=== PATIENT | female | born 1980 | race African-American/Black ===

== ENCOUNTER 2021-04-20 09:55 | Inpatient (IN) | payer BC ==
[~2021-04-20] VITALS: Ht 144.8 cm; Wt 52.2 kg
[2021-04-20] MEDS ORDERED: fentaNYL PF VIAL 100 MCG/2 ML VIAL IVP ONE ×2 (10:45→14:30)
[2021-04-20] MEDS ORDERED: IV NORMAL SALINE 1000ML BAG 1,000 ML IV SCH (10:45)
[2021-04-20] MEDS ORDERED: ONDANSETRON PF 4 MG/2 ML VIAL. IVP ONE (10:45)
--- NOTE | 2021-04-20 10:50 | PHYS DOC ---
General Adult EDM: Chief Complaint: ABDOMINAL PAIN HPI: HPI: Patient is a 41 year old female who presents with nausea, vomiting, generalized abdominal pain that is aching and sharp since last night. She states she does have some shortness of breath. She states she took a laxative thinking maybe she had constipation and she just had some diarrhea. She does smoke marijuana and she states she drinks twice a week hard liquor but does not know the amount she actually drinks. Rates her pain a 10 out of 10. Denies any surgeries. Denies fever, chest pain, blood in her vomit or stool, numbness or tingling, focal weakness, headache, dizziness, syncope, trauma. Review of Systems: Review of Systems: Constitutional: Denies fever or chills. [] Eyes: Denies change in visual acuity. [] HENT: Denies nasal congestion or sore throat. [] Respiratory: Denies cough or +shortness of breath. [] Cardiovascular: Denies chest pain or edema. [] GI: +abdominal pain, +nausea, +vomiting, denies bloody stools or +diarrhea after laxative use. [] : Denies dysuria. [] Musculoskeletal: Denies back pain or joint pain. [] Integument: Denies rash. [] Neurologic: Denies headache, focal weakness or sensory changes. [] Endocrine: Denies polyuria or polydipsia. [] Lymphatic: Denies swollen glands. [] Psychiatric: Denies depression or anxiety. [] Heart Score: C/O Chest Pain: No Risk Factors: Risk Factors: DM, Current or recent (<one month) smoker, HTN, HLP, family h istory of CAD, obesity. Risk Scores: Score 0 - 3: 2.5% MACE over next 6 weeks - Discharge Home Score 4 - 6: 20.3% MACE over next 6 weeks - Admit for Clinical Observation Score 7 - 10: 72.7% MACE over next 6 weeks - Early Invasive Strategies Current Medications: Current Medications Medications (Trade) Dose Ordered Sig/Yunior Start Time Stop Time Status Last Admin Dose Admin Fentanyl Citrate (Fentanyl 2ml Vial) 50 mcg 1X ONCE 04/20/21 10:45 04/20/21 10:46 UNV Ondansetron HCl (Zofran) 4 mg 1X ONCE 04/20/21 10:45 04/20/21 10:46 UNV Sodium Chloride 1,000 ml @ 1,000 mls/hr Q1H 04/20/21 10:45 04/20/21 11:44 UNV Physical Exam: PE: Constitutional: Well developed, well nourished, no acute distress, non-toxic appearance. [] HENT: Normocephalic, atraumatic, bilateral external ears normal, oropharynx moist, no oral exudates, nose normal. [] Eyes: PERRLA, EOMI, conjunctiva normal, no discharge. [] Neck: Normal range of motion, no tenderness, supple, no stridor. [] Cardiovascular:Heart rate regular rhythm, no murmur [] Lungs & Thorax: Bilateral breath sounds clear to auscultation [] Abdomen: Bowel sounds normal, soft, generalized tenderness, no masses, no pulsatile masses. [] Skin: Warm, dry, no erythema, no rash. [] Back: No tenderness, no CVA tenderness. [] Extremities: No tenderness, no cyanosis, no clubbing, ROM intact, no edema. [] Neurologic: Alert and oriented X 3, normal motor function, normal sensory function, no focal deficits noted. [] Psychologic: Affect normal, judgement normal, mood normal. [] EKG: EK and read by Dr Blackman as Sinus Rhythm and no STEMI Radiology/Procedures: Radiology/Procedures: [] Impression: [facility] [address] [place], [place] [id number] IMAGING REPORT Signed PATIENT: REZA OH MACCOUNT: [id number] : 1980 LOCATION: ER AGE: 41 SEX: F EXAM STATUS: REG ER ORD. PHYSICIAN: MARGARET ORDAZ APRN REASON: SOA PROCEDURE: PORTABLE CHEST 1V XR CHEST 1V CLINICAL INDICATIONS: Shortness of air. Comparison: None available. Findings: No acute lung infiltrate or pleural effusion or pulmonary edema or lung mass or pneumothorax is seen. The heart size, pulmonary vasculature, mediastinum and both verenice are unremarkable. IMPRESSION: No acute radiographic abnormality is seen. Electronically signed by: Carrie Chauhan MD (04/20/2021 11:11 AM) [id number] DICTATED and SIGNED BY: CARRIE CHAUHAN MD DATE: 04/20/21 [id number] [facility] [address] [place] [address] IMAGING REPORT Signed PATIENT: REZA OH MACCOUNT: [id number] : 1980 LOCATION: ER AGE: 41 SEX: F EXAM STATUS: REG ER ORD. PHYSICIAN: MARGARET ORDAZ APRN REASON: GENERALISED PAIN AND TENDERNESS PROCEDURE: CT ABD PELV W/ IV CONTRST ONLY CT STUDY OF THE ABDOMEN AND PELVIS WITH CONTRAST Clinical indications: Generalized abdominal pain and tenderness. TECHNIQUE: After IV infusion of 75 cc Omnipaque 300, helical CT scanning of the abdomen and pelvis was performed. GI contrast was not administered. This may decrease the sensitivity to detect GI tract pathology. PQRS COMPLIANCE STATEMENT One or more of the following individualized dose reduction techniques were utilized for this study: 1. Automated exposure control 2. Adjustment of the mA and/or kV according to patient size 3. Use of iterative reconstruction technique COMPARISON: No previous CT available. FINDINGS: Hepatic cysts are seen. The spleen is not enlarged. Pancreas is normal. Biliary sludge is seen within the gallbladder. No radiopaque gallstone or gallbladder wall thickening is evident. No extrahepatic biliary ductal dilatation is seen. No adrenal mass is evident. Both kidneys are normal without hydronephrosis or hydroureter is seen. Urinary bladder wall is smooth. 2 uterine fibroids are seen. The first fibroid is seen within the anterior superior aspect of the uterus and measures 4.5 cm. The second fibroid is seen posteriorly within the mid body of uterus measuring 3.4 cm. Curvilinear cystic lesion is seen within the right lower quadrant seen best on series 4 image 15 measuring 5 cm in size. This could represent an abnormal appendix or hydrosalpinx. On series 2 and image 59, there is a solid appearing tubular structure measuring 11 mm in caliber. This is seen on coronal series 4 image 22. This could represent thickened appendix or thickened fallopian tube or thickened small bowel loop extending into the right adnexa. On series 2 and image 47, there is segmental small bowel with enhancing thickened wall and filled with fluid. This may represent segmental enteritis. The terminal ileum is not well visualized in this study and is difficult to separate from the ascending colon and adjacent small bowel loops. Wall thickening of the terminal ileum is possible. Therefore, Crohn's disease is a possibility if there is a history of such. Just inferior to this segment of small bowel, a fluid collection with enhancing wall is seen measuring 5.3 cm seen on series 4 and coronal image 12 and axial series 2 image 51. This could represent ovarian cystic lesion or tubo-ovarian abscess with hydrosalpinx or ectopic or endometriosis or peritoneal cavity abscess. There is a small amount of complex fluid within the cul-de-sac. There is mesenteric edema. There are air-filled dilated loops of small bowel anteriorly with a step ladder configuration. This is seen best on coronal image 4 and image 9. Developing small bowel obstruction is possible. No free air is seen. There is segmental wall thickening of the colon especially the ascending colon and descending colon and proximal sigmoid colon with enhancement of the wall. There is pericolonic inflammation around the ascending colon. These findings may reflect colitis. No lung base consolidation is evident. Levoscoliosis is seen. No lytic process is evident. IMPRESSION: Multiple abnormalities of the abdomen and pelvis. See discussion above. Correlation with test is recommended to exclude an ectopic . Correlation with clinical and surgical history is needed as well; i.e history of endometriosis or Crohn's disease etc. Biliary sludge within the gallbladder. Electronically signed by: Carrie Chauhan MD (04/20/2021 1:23 PM) [id number] DICTATED and SIGNED BY: CARRIE CHAUHAN MD DATE: 04/20/21 [id number] [facility] [address] [place] [address] IMAGING REPORT Signed PATIENT: REZA OH MACCOUNT: [id number] : 1980 LOCATION: ER AGE: 41 SEX: F EXAM STATUS: REG ER ORD. PHYSICIAN: MARGARET ORDAZ APRN REASON: ABNORMAL CT ABD PELVIS, PELVIC PAIN PROCEDURE: PELVIS COMPLETE EXAM: ULTRASOUND PELVIS INDICATION: Reason: ABNORMAL CT ABD PELVIS, PELVIC PAIN. COMPARISON: CT study performed today. TECHNIQUE: Transabdominal sonography was performed. FINDINGS: Uterus anteverted in position. The longitudinal and AP and transverse dimensions of the uterus are 10.0 cm and 5.3 cm and 5.8 cm respectively. There is an anterior upper body uterine fibroid measuring 3.6 cm in size. There is a posterior mid body uterine fibroid measuring 3.1 cm in size. The endometrial canal measures 3 mm in thickness which is normal. There is a complex fluid colle ction within the cul-de-sac posterior to the cervix and lower uterine body measuring 4.9 cm and 2.7 cm and 7.3 cm in size. Neither ovary is visualized. There is a complex cystic and solid mass lesion which extends from the left adnexa to the right adnexa with internal vascularity. It measures at least 9 cm in size. IMPRESSION: Complex cystic solid mass lesion extending from the left adnexa to the right adnexa measuring at least 9 cm in size. Neither ovary is visualized. Complex fluid within the cul-de-sac. 2 uterine fibroids. Electronically signed by: Carrie Chauhan MD (04/20/2021 3:44 PM) [id number] DICTATED and SIGNED BY: CARRIE CHAUHAN MD DATE: 04/20/21 [id number] Course & Med Decision Making: Course & Med Decision Making Pertinent Labs and Imaging studies reviewed. (See chart for details) See HPI. Alert and oriented x4. Ambulatory with a steady gait but is not standing straight up. She is guarding her abdomen. Abdomen is soft but tender throughout. Speaks in full clear sentences. Skin pink warm and dry. Mucous membranes are moist. Denies any urinary symptoms. No CVA tenderness. Patient has intractable abdominal pain. She does have trichomonas in her urine. Treat her with Rocephin IV and Flagyl p.o. Toradol did not help her pain. Patient refused the fentanyl the first time I had ordered it. I have now ordered her fentanyl. She is also needing nicotine patch. The CT came back showing uterine fibroids, possible tubal abscess, inflammatory bowel disease, appendicitis. Due to her having trichomonas in her urine I think the tubal abscess is more likely. I have started doxycycline IV. Patient agrees to be admitted. Admitted to Dr. Dunn. [] Padmini Disclaimer: Padmini Disclaimer: This electronic medical record was generated, in whole or in part, using a voice recognition dictation system. Departure Departure Impression: Primary Impression: Intractable abdominal pain Additional Impression: Trichomoniasis of bladder Disposition: ADMITTED INPATIENT Admitting Physician: MIRNA Condition: STABLE MARGARET ORDAZ THREADER OPERATOR Apr 20, 2021 10:50
[2021-04-20 11:27] LABS: BASO % 1 % (0-3); EOS % 0 % (0-3); HEMATOCRIT 35.1 % (36.0-47.0); HEMOGLOBIN 11.2 g/dL (12.0-15.5); LYMPH # 2.1 x10^3/uL (1.0-4.8); LYMPH % 28 % (24-48); MEAN CORPUSCULAR HEMOGLOBIN 24 pg (25-35); MEAN CORPUSCULAR HGB CONC 32 g/dL (31-37); MEAN CORPUSCULAR VOLUME 75 fL (79-100); MONO # 0.2 x10^3/uL (0.0-1.1); MONO % 3 % (0-9); NEUT # 5.1 x10^3/uL (1.8-7.7); NEUT % 68 % (31-73); PLATELET COUNT 264 x10^3/uL (140-400); RED BLOOD COUNT 4.68 x10^6/uL (3.50-5.40); RED CELL DISTRIBUTION WIDTH 16.3 % (11.5-14.5); WHITE BLOOD COUNT 7.5 x10^3/uL (4.0-11.0)
[2021-04-20 11:35] LABS: CALCIUM 8.6 mg/dL (8.5-10.1); CREATININE 0.7 mg/dL (0.6-1.0); GFR 91.8; POTASSIUM 3.5 mmol/L (3.5-5.1)
[2021-04-20 11:42] LABS: ALBUMIN 3.1 g/dL (3.4-5.0); ALBUMIN/GLOBULIN RATIO 0.9 (1.0-1.7); TOTAL BILIRUBIN 0.8 mg/dL (0.2-1.0); TOTAL PROTEIN 6.4 g/dL (6.4-8.2)
[2021-04-20 11:56] LABS: BILIRUBIN,URINE NEGATIVE (NEG); CLARITY,URINE CLEAR; COLOR,URINE YELLOW; NITRITE,URINE NEGATIVE (NEG); PROTEIN,URINE 30 mg/dL (NEG-TRACE); UROBILINOGEN,URINE 0.2 mg/dL (0.2 mg/dL)
[2021-04-20 12:04] LABS: BARBITURATES NEG (NEG); BENZODIAZEPINES NEG (NEG); CANNABINOIDS POS (NEG); COCAINE NEG (NEG); METHADONE NEG (NEG); OPIATES NEG (NEG); PHENCYCLIDINE NEG (NEG)
[2021-04-20 12:10] LABS: AMPHETAMINE/METHAMPHETAMINE NEG (NEG)
[2021-04-20 12:14] LABS: BACTERIA,URINE FEW /HPF (0-FEW); HYALINE CASTS, URINE OCCASIONAL /HPF; TRICHOMONAS,URINE PRESENT
[2021-04-20] MEDS ORDERED: CONTRAST GIVEN. MC PRN (12:15)
[2021-04-20] MEDS ORDERED: IOHEXOL 300 MG/ML 100ML VIAL. IV ONE (12:15)
[2021-04-20] MEDS ORDERED: metroNIDAZOLE 500 MG TABLET PO ONE (12:30)
[2021-04-20] MEDS ORDERED: IV NORMAL SALINE 1000ML BAG 1,000 ML IV ONE (12:30)
[2021-04-20] MEDS ORDERED: cefTRIAXone IV Push 1 GM VIAL. IVP ONE (12:30)
--- NOTE | 2021-04-20 14:00 | RAD ---
CT STUDY OF THE ABDOMEN AND PELVIS WITH CONTRAST Clinical indications: Generalized abdominal pain and tenderness. TECHNIQUE: After IV infusion of 75 cc Omnipaque 300, helical CT scanning of the abdomen and pelvis wa s performed. GI contrast was not administered. This may decrease the sensitivity to detect GI tract p athology. PQRS COMPLIANCE STATEMENT One or more of the following individualized dose reduction techniques were utilized for this study: 1. Automated exposure control 2. Adjustment of the mA and/or kV according to patient size 3. Use of iterative reconstruction technique COMPARISON: No previous CT available. FINDINGS: Hepatic cysts are seen. The spleen is not enlarged. Pancreas is normal. Biliary sludge is s een within the gallbladder. No radiopaque gallstone or gallbladder wall thickening is evident. No ext rahepatic biliary ductal dilatation is seen. No adrenal mass is evident. Both kidneys are normal with out hydronephrosis or hydroureter is seen. Urinary bladder wall is smooth. 2 uterine fibroids are see n. The first fibroid is seen within the anterior superior aspect of the uterus and measures 4.5 cm. T he second fibroid is seen posteriorly within the mid body of uterus measuring 3.4 cm. Curvilinear cys tic lesion is seen within the right lower quadrant seen best on series 4 image 15 measuring 5 cm in s ize. This could represent an abnormal appendix or hydrosalpinx. On series 2 and image 59, there is a solid appearing tubular structure measuring 11 mm in caliber. This is seen on coronal series 4 image 22. This could represent thickened appendix or thickened fallopian tube or thickened small bowel loop extending into the right adnexa. On series 2 and image 47, there is segmental small bowel with enhan cing thickened wall and filled with fluid. This may represent segmental enteritis. The terminal ileum is not well visualized in this study and is difficult to separate from the ascending colon and adjac ent small bowel loops. Wall thickening of the terminal ileum is possible. Therefore, Crohn's disease is a possibility if there is a history of such. Just inferior to this segment of small bowel, a fluid collection with enhancing wall is seen measuring 5.3 cm seen on series 4 and coronal image 12 and ax ial series 2 image 51. This could represent ovarian cystic lesion or tubo-ovarian abscess with hydros alpinx or ectopic or endometriosis or peritoneal cavity abscess. There is a small amount of complex fluid within the cul-de-sac. There is mesenteric edema. There are air-filled dilated loops o f small bowel anteriorly with a step ladder configuration. This is seen best on coronal image 4 and i mage 9. Developing small bowel obstruction is possible. No free air is seen. There is segmental wall thickening of the colon especially the ascending colon and descending colon and proximal sigmoid colo n with enhancement of the wall. There is pericolonic inflammation around the ascending colon. These f indings may reflect colitis. No lung base consolidation is evident. Levoscoliosis is seen. No lytic p rocess is evident. IMPRESSION: Multiple abnormalities of the abdomen and pelvis. See discussion above. Correlation with test is recommended to exclude an ectopic . Correlation with clinical and surgical history is needed as well; i.e history of endometriosis or Crohn's disease etc. Biliary sludge within the gallbladder. Electronically signed by: Roge Chauhan MD (04/20/2021 1:23 PM) [id number]
--- NOTE | 2021-04-20 14:00 | RAD ---
XR CHEST 1V CLINICAL INDICATIONS: Shortness of air. Comparison: None available. Findings: No acute lung infiltrate or pleural effusion or pulmonary edema or lung mass or pneumothora x is seen. The heart size, pulmonary vasculature, mediastinum and both verenice are unremarkable. IMPRESSION: No acute radiographic abnormality is seen. Electronically signed by: Roge Chauhan MD (04/20/2021 11:11 AM) [id number]
[2021-04-20] MEDS ORDERED: DOXYCYCLINE HYCLATE 100 MG in IV DEXTROSE 5% 100ML 100 ML IV ONE (14:15)
[2021-04-20] MEDS ORDERED: NICOTINE 21MG PATCH. TD ONE (14:30)
[2021-04-20] MEDS ORDERED: ACETAMINOPHEN 325 MG TABLET. PO PRN (14:45)
[2021-04-20] MEDS ORDERED: ONDANSETRON PF 4 MG/2 ML VIAL. IVP PRN (14:45)
[2021-04-20] MEDS ORDERED: fentaNYL PF VIAL 100 MCG/2 ML VIAL IVP PRN (14:45)
[2021-04-20] MEDS ORDERED: PIP/TAZO PER PHARMACY MC PRN (15:15)
--- NOTE | 2021-04-20 15:37 | EKG ---
[facility] [address] [place] [address] Test Date: 2021-04-20 Test Time: 11:16:45 Pat Name: REZA OH Department: Room: Gender: F Manager Commission: : 1980 Requested By: MARGARET ORDAZ Order Number: [id number] Reading MD: Measurements Intervals [place] Rate: 95 P: 45 UT: 104 QRS: 26 QRSD: 76 T: 38 QT: 342 QTc: 433 Interpretive Statements SINUS RHYTHM LEFT ATRIAL ABNORMALITY ABNORMAL ECG RI6.02 No previous ECG available for comparison
--- NOTE | 2021-04-20 15:44 | HP ---
ADMIT DATE: 04/20/2021 CHIEF COMPLAINT: Abdominal pain. HISTORY OF PRESENT ILLNESS: The patient is a pleasant, healthy 41-year-old female who presents to the ER with abdominal pain. We did some imaging and it appears she has a fallopian tube abscess. PAST MEDICAL HISTORY: Benign. ALLERGIES: None. FAMILY HISTORY: Diabetes. SOCIAL HISTORY: She does not drink, smoke or take drugs. MEDICATIONS: Reviewed, please refer to the MRAD. REVIEW OF SYSTEMS: GENERAL: No history of weight change, weakness or fevers. SKIN: No bruising, hair changes or rashes. EYES: No blurred, double or loss of vision. NOSE AND THROAT: No history of nosebleeds, hoarseness or sore throat. HEART: No history of palpitations, chest pain or shortness of breath on exertion. LUNGS: Denies cough, hemoptysis, wheezing or shortness of breath. GASTROINTESTINAL: She complains of abdominal pain. GENITOURINARY: No history of frequency, urgency, hesitancy or nocturia. NEUROLOGIC: Denies history of numbness, tingling, tremor or weakness. PSYCHIATRIC: No history of panic, anxiety or depression. ENDOCRINE: No history of heat or cold intolerance, polyuria or polydipsia. EXTREMITIES: Denies muscle weakness, joint pain, pain on walking or stiffness. PHYSICAL EXAMINATION: VITALS: Within normal limits and are stable. GENERAL: No apparent distress. Alert and oriented. HEENT: Normal cephalic atraumatic, external auditory canals are patent EYES: Extraocular muscles are intact, pupils are equally round and reactive to light and accommodation MUSKULOSKELETAL: Well developed, well nourished, good range of motion ENDOCRINE: No thyromegaly was palpated LYMPHATICS: No cervical chain or axillary nodes were noted HEMATOPOIETIC: No bruising NECK: Supple, no JVD, no thyromegaly was noted. LUNGS: Clear to auscultation in all lung quintana without rhonchi or wheezing. HEART: RRR, S1, S2 present. Peripheral pulses intact, no obvious murmurs were noted. ABDOMEN: She has decreased bowel sounds with tenderness throughout. EXTREMITIES: Without any cyanosis, clubbing, or edema. Pedal pulses intact, Homans sign is negative. NEUROLOGIC: Normal speech, normal tone. A and O x 3, moves all extremities, no obvious focal deficits. PSYCHIATRIC: Normal affect, normal mood. Stable. SKIN: No ulcerations or rashes, good skin turgor, no jaundice. VASCULAR: Good capillary refill, neurovascular bundle appears to be intact. Ultrasound is confirming probable diffuse abscess. UA shows Trichomonas. ASSESSMENT AND PLAN: Probable fallopian tube abscess. The patient will be admitted. I have started IV Zosyn. We also gave her IV doxycycline. Consult BUYER INTERN. Home meds. Deep venous thrombosis prophylaxis. Full code. SHERLYN/ANGEL DR: Jane TID: [id number]
--- NOTE | 2021-04-20 15:46 | RAD ---
EXAM: ULTRASOUND PELVIS INDICATION: Reason: ABNORMAL CT ABD PELVIS, PELVIC PAIN. COMPARISON: CT study performed today. TECHNIQUE: Transabdominal sonography was performed. FINDINGS: Uterus anteverted in position. The longitudinal and AP and transverse dimensions of the uterus are 10 .0 cm and 5.3 cm and 5.8 cm respectively. There is an anterior upper body uterine fibroid measuring 3 .6 cm in size. There is a posterior mid body uterine fibroid measuring 3.1 cm in size. The endometria l canal measures 3 mm in thickness which is normal. There is a complex fluid collection within the cu l-de-sac posterior to the cervix and lower uterine body measuring 4.9 cm and 2.7 cm and 7.3 cm in siz e. Neither ovary is visualized. There is a complex cystic and solid mass lesion which extends from the l eft adnexa to the right adnexa with internal vascularity. It measures at least 9 cm in size. IMPRESSION: Complex cystic solid mass lesion extending from the left adnexa to the right adnexa measuring at leas t 9 cm in size. Neither ovary is visualized. Complex fluid within the cul-de-sac. 2 uterine fibroids. Electronically signed by: Roge Chauhan MD (04/20/2021 3:44 PM) [id number]
[2021-04-20] MEDS: IV NORMAL SALINE 1000ML BAG 1,000 ML IV SCH ×2 (18:19→22:45)
[2021-04-20] MEDS: PIPERACILLIN/TAZOBACTAM 3.375 GM in IV NORMAL SALINE 50ML 50 ML IV SCH (18:27)
[2021-04-20 19:43] VITALS: BP 131/86
[2021-04-20] MEDS ORDERED: MORPHINE SULFATE 2 MG/ML INJ. IV PRN (20:00)
[2021-04-20] MEDS: MORPHINE SULFATE 2 MG/ML INJ. IV PRN (20:06)
--- NOTE | 2021-04-20 20:48 | PDOC2 ---
CONSULT Date of Consult Date of Consult DATE: 04/20/21 TIME: 20:44 Reason for Consult Reason for Consult: Adnexal mass History of Present Illness Reason for Visit: The pt is a 41y who presented to the ER with abd pain. The pain began yesterday am around 8:00. It felt like she had a bad BM. She attempted to go but couldnt. By 10:30 she was doubled over in pain and had to leave work by 11:00. She attempted to go to urgent care this am, but they wouldnt see her so she ended up at [facility] ER. In the ER she underwent a CT which revealed the following: Hepatic cysts are seen 2 uterine fibroids are seen. The first fibroid is seen within the anterior superior aspect of the uterus and measures 4.5 cm. The second fibroid is seen posteriorly within the mid body of uterus measuring 3.4 cm. Curvilinear cystic lesion is seen within the right lower quadrant seen best on series 4 image 15 measuring 5 cm in size. This could represent an abnormal appendix or hydrosalpinx. On series 2 and image 59, there is a solid appearing tubular structure measuring 11 mm in caliber. This is seen on coronal series 4 image 22. This could represent thickened appendix or thickened fallopian tube or thickened small bowel loop extending into the right adnexa. On series 2 and image 47, there is segmental small bowel with enhancing thickened wall and filled with fluid. This may represent segmental enteritis. The terminal ileum is not well visualized in this study and is difficult to separate from the ascending colon and adjacent small bowel loops. Wall thickening of the terminal ileum is possible. Therefore, Crohn's disease is a possibility if there is a history of such. Just inferior to this segment of small bowel, a fluid collection with enhancing wall is seen measuring 5.3 cm seen on series 4 and coronal image 12 and axial series 2 image 51. This could represent ovarian cystic lesion or tubo-ovarian abscess with hydrosalpinx or ectopic or endometriosis or peritoneal cavity abscess. There is a small amount of complex fluid within the cul-de-sac. There is mesenteric edema. There are air-filled dilated loops of small bowel anteriorly with a step ladder configuration. This is seen best on coronal image 4 and image 9. Developing small bowel obstruction is possible. No free air is seen. There is segmental wall thickening of the colon especially the ascending colon and descending colon and proximal sigmoid colon with enhancement of the wall. There is pericolonic inflammation around the ascending colon. These findings may reflect colitis. No lung base consolidation is evident. Levoscoliosis is seen. No lytic process is evident. She subsequently underwent a u/s revealing the following: Complex cystic and solid mass lesion extending from the left adnexa to the right adnexa measuring at least 9 cm in size. Neither ovary is visualized. Complex fluid within the cul-de-sac. 2 uterine fibroids. The pts mother is currently at after a stroke this am. 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 04/02/21 10yo / regular Not on contraception SH: 1/2 PPD, rare EtOH FH: DM Current Problem List Problem List Problems Medical Problems: (1) Intractable abdominal pain Status: Acute (2) Trichomoniasis of bladder Status: Acute Current Medications Current Medications Current Medications Sodium Chloride 1,000 ml @ 1,000 mls/hr Q1H IV Last administered on 04/20/21at 11:23; Start 04/20/21 at 10:45; Stop 04/20/21 at 11:44; Status DC Fentanyl Citrate (Fentanyl 2ml Vial) 50 mcg 1X ONCE IVP Last administered on 04/20/21at 11:29; Start 04/20/21 at 10:45; Stop 04/20/21 at 11:10; Status DC Ondansetron HCl (Zofran) 4 mg 1X ONCE IVP Last administered on 04/20/21at 11:27; Start 04/20/21 at 10:45; Stop 04/20/21 at 11:10; Status DC Iohexol (Omnipaque 300 Mg/ml) 75 ml 1X ONCE IV Last administered on 04/20/21at 12:23; Start 04/20/21 at 12:15; Stop 04/20/21 at 12:16; Status DC Info (CONTRAST GIVEN -- Rx MONITORING) 1 each PRN DAILY PRN MC SEE COMMENTS; Start 04/20/21 at 12:15; Stop 04/22/21 at 12:14 Metronidazole (Flagyl) 2,000 mg 1X ONCE PO Last administered on 04/20/21at 12:45; Start 04/20/21 at 12:30; Stop 04/20/21 at 12:31; Status DC Sodium Chloride 1,000 ml @ 1,000 mls/hr 1X ONCE IV Last administered on 04/20/21at 12:50; Start 04/20/21 at 12:30; Stop 04/20/21 at 13:29; Status DC Ceftriaxone Sodium (Rocephin) 1 gm 1X ONCE IVP Last administered on 04/20/21at 12:45; Start 04/20/21 at 12:30; Stop 04/20/21 at 12:31; Status DC Doxycycline Hyclate 100 mg/ Dextrose 100 ml @ 50 mls/hr 1X ONCE IV Last administered on 04/20/21at 14:54; Start 04/20/21 at 14:15; Stop 04/20/21 at 16:14; Status DC Nicotine (Nicoderm Cq 21mg) 1 patch 1X ONCE TD Last administered on 04/20/21at 14:48; Start 04/20/21 at 14:30; Stop 04/20/21 at 14:31; Status DC Fentanyl Citrate (Fentanyl 2ml Vial) 50 mcg 1X ONCE IVP Last administered on 04/20/21at 14:49; Start 04/20/21 at 14:30; Stop 04/20/21 at 14:31; Status DC Ondansetron HCl (Zofran) 4 mg PRN Q8HRS PRN IVP NAUSEA/VOMITING; Start 04/20/21 at 14:45; Stop 04/21/21 at 14:44 Fentanyl Citrate (Fentanyl 2ml Vial) 50 mcg PRN Q1HR PRN IVP PAIN Last administered on 04/20/21at 17:35; Start 04/20/21 at 14:45; Stop 04/21/21 at 14:44 Sodium Chloride 1,000 ml @ 125 mls/hr Q8H IV Last administered on 04/20/21at 18:19; Start 04/20/21 at 14:45; Stop 04/21/21 at 14:44 Acetaminophen (Tylenol) 650 mg PRN Q4HRS PRN PO FEVER > 100.3'F; Start 04/20/21 at 14:45; Stop 04/21/21 at 14:44 Piperacillin Sod/ Tazobactam Sod (Zosyn Per Pharmacy) 1 each PRN DAILY PRN MC SEE COMMENTS; Start 04/20/21 at 15:15 Piperacillin Sod/ Tazobactam Sod 3.375 gm/Sodium Chloride 50 ml @ 100 mls/hr Q6HRS IV Last administered on 04/20/21at 18:27; Start 04/20/21 at 18:00 Morphine Sulfate (Morphine Sulfate) 2 mg PRN Q2HR PRN IV MODERATE PAIN Last administered on 04/20/21at 20:06; Start 04/20/21 at 20:00 Morphine Sulfate (Morphine Sulfate) 4 mg PRN Q2HR PRN IV SEVERE PAIN; Start 04/20/21 at 20:00 Oxycodone/ Acetaminophen (Percocet 5/325) 1 tab PRN Q6HRS PRN PO MODERATE TO SEVERE PAIN; Start 04/20/21 at 20:30 Allergies Allergies: Coded Allergies: No Known Drug Allergies (Unverified , 04/20/21) Physical Exam General: Alert, Oriented X3, Cooperative, No acute distress HEENT: PERRLA, Mucous membr. moist/pink Lungs: Clear to auscultation, Normal air movement Heart: Regular rate, Normal S1, Normal S2, No murmurs Abdomen: Normal bowel sounds, Soft, No hepatosplenomegaly Extremities: No clubbing, No cyanosis, No edema, Normal pulses, No tenderness/swelling Skin: No rashes, No breakdown Neuro: Normal gait, Normal speech, Normal tone, Sensation intact, Reflexes 2+ Psych/Mental Status: Mental status NL, Mood NL Vitals VITALS Vital Signs Date Time Temp Pulse Resp B/P (MAP) Pulse Ox O2 Delivery O2 Flow Rate FiO2 04/20/21 20:33 18 Room Air 04/20/21 19:43 99.3 93 131/86 (101) 99 99.3 Labs Labs Laboratory Tests Test 04/20/21 11:07 04/20/21 11:44 04/20/21 11:49 04/20/21 15:40 White Blood Count 7.5 x10^3/uL (4.0-11.0) Red Blood Count 4.68 x10^6/uL (3.50-5.40) Hemoglobin 11.2 g/dL (12.0-15.5) Hematocrit 35.1 % (36.0-47.0) Mean Corpuscular Volume 75 fL (79-100) Mean Corpuscular Hemoglobin 24 pg (25-35) Mean Corpuscular Hemoglobin Concent 32 g/dL (31-37) Red Cell Distribution Width 16.3 % (11.5-14.5) Platelet Count 264 x10^3/uL (140-400) Neutrophils (%) (Auto) 68 % (31-73) Lymphocytes (%) (Auto) 28 % (24-48) Monocytes (%) (Auto) 3 % (0-9) Eosinophils (%) (Auto) 0 % (0-3) Basophils (%) (Auto) 1 % (0-3) Neutrophils # (Auto) 5.1 x10^3/uL (1.8-7.7) Lymphocytes # (Auto) 2.1 x10^3/uL (1.0-4.8) Monocytes # (Auto) 0.2 x10^3/uL (0.0-1.1) Eosinophils # (Auto) 0.0 x10^3/uL (0.0-0.7) Basophils # (Auto) 0.0 x10^3/uL (0.0-0.2) Erythrocyte Sedimentation Rate 24 (0-25) Sodium Level 136 mmol/L (136-145) Potassium Level 3.5 mmol/L (3.5-5.1) Chloride Level 99 mmol/L (98-107) Carbon Dioxide Level 19 mmol/L (21-32) Anion Gap 18 (6-14) Blood Urea Nitrogen 7 mg/dL (7-20) Creatinine 0.7 mg/dL (0.6-1.0) Estimated GFR (Cockcroft-Gault) 91.8 BUN/Creatinine Ratio 10 (6-20) Glucose Level 75 mg/dL (70-99) Calcium Level 8.6 mg/dL (8.5-10.1) Total Bilirubin 0.8 mg/dL (0.2-1.0) Aspartate Amino Transf (AST/SGOT) 22 U/L (15-37) Alanine Aminotransferase (ALT/SGPT) 29 U/L (14-59) Alkaline Phosphatase 78 U/L (46-116) C-Reactive Protein, Quantitative 171.1 mg/L (0-3.3) Total Protein 6.4 g/dL (6.4-8.2) Albumin 3.1 g/dL (3.4-5.0) Albumin/Globulin Ratio 0.9 (1.0-1.7) Lipase 52 U/L (73-393) Urine Collection Type Unknown Urine Color Yellow Urine Clarity Clear Urine pH 6.0 (<5.0-8.0) Urine Specific [place] 1.015 (1.000-1.030) Urine Protein 30 mg/dL (NEG-TRACE) Urine Glucose (UA) Negative mg/dL (NEG) Urine Ketones (Stick) >=80 mg/dL (NEG) Urine Blood Small (NEG) Urine Nitrite Negative (NEG) Urine Bilirubin Negative (NEG) Urine Urobilinogen Dipstick 0.2 mg/dL (0.2 mg/dL) Urine Leukocyte Esterase Small (NEG) Urine RBC 3-5 /HPF (0-2) Urine WBC 5-10 /HPF (0-4) Urine Squamous Epithelial Cells Few /LPF Urine Bacteria Few /HPF (0-FEW) Urine Hyaline Casts Occasional /HPF Urine Mucus Slight /LPF Urine Trichomonas Present Urine Opiates Screen Neg (NEG) Urine Methadone Screen Neg (NEG) Urine Barbiturates Neg (NEG) Urine Phencyclidine Screen Neg (NEG) Urine Amphetamine/Methamphetamine Neg (NEG) Urine Benzodiazepines Screen Neg (NEG) Urine Cocaine Screen Neg (NEG) Urine Cannabinoids Screen Pos (NEG) Urine Ethyl Alcohol Neg (NEG) Bedside Urine HCG, Qualitative Hcg negative (Negative) SARS-CoV-2 Antigen (Rapid) Negative (NEGATIVE) Laboratory Tests Test 04/20/21 11:07 04/20/21 11:44 04/20/21 11:49 04/20/21 15:40 White Blood Count 7.5 x10^3/uL (4.0-11.0) Red Blood Count 4.68 x10^6/uL (3.50-5.40) Hemoglobin 11.2 g/dL (12.0-15.5) Hematocrit 35.1 % (36.0-47.0) Mean Corpuscular Volume 75 fL (79-100) Mean Corpuscular Hemoglobin 24 pg (25-35) Mean Corpuscular Hemoglobin Concent 32 g/dL (31-37) Red Cell Distribution Width 16.3 % (11.5-14.5) Platelet Count 264 x10^3/uL (140-400) Neutrophils (%) (Auto) 68 % (31-73) Lymphocytes (%) (Auto) 28 % (24-48) Monocytes (%) (Auto) 3 % (0-9) Eosinophils (%) (Auto) 0 % (0-3) Basophils (%) (Auto) 1 % (0-3) Neutrophils # (Auto) 5.1 x10^3/uL (1.8-7.7) Lymphocytes # (Auto) 2.1 x10^3/uL (1.0-4.8) Monocytes # (Auto) 0.2 x10^3/uL (0.0-1.1) Eosinophils # (Auto) 0.0 x10^3/uL (0.0-0.7) Basophils # (Auto) 0.0 x10^3/uL (0.0-0.2) Erythrocyte Sedimentation Rate 24 (0-25) Sodium Level 136 mmol/L (136-145) Potassium Level 3.5 mmol/L (3.5-5.1) Chloride Level 99 mmol/L (98-107) Carbon Dioxide Level 19 mmol/L (21-32) Anion Gap 18 (6-14) Blood Urea Nitrogen 7 mg/dL (7-20) Creatinine 0.7 mg/dL (0.6-1.0) Estimated GFR (Cockcroft-Gault) 91.8 BUN/Creatinine Ratio 10 (6-20) Glucose Level 75 mg/dL (70-99) Calcium Level 8.6 mg/dL (8.5-10.1) Total Bilirubin 0.8 mg/dL (0.2-1.0) Aspartate Amino Transf (AST/SGOT) 22 U/L (15-37) Alanine Aminotransferase (ALT/SGPT) 29 U/L (14-59) Alkaline Phosphatase 78 U/L (46-116) C-Reactive Protein, Quantitative 171.1 mg/L (0-3.3) Total Protein 6.4 g/dL (6.4-8.2) Albumin 3.1 g/dL (3.4-5.0) Albumin/Globulin Ratio 0.9 (1.0-1.7) Lipase 52 U/L (73-393) Urine Collection Type Unknown Urine Color Yellow Urine Clarity Clear Urine pH 6.0 (<5.0-8.0) Urine Specific [place] 1.015 (1.000-1.030) Urine Protein 30 mg/dL (NEG-TRACE) Urine Glucose (UA) Negative mg/dL (NEG) Urine Ketones (Stick) >=80 mg/dL (NEG) Urine Blood Small (NEG) Urine Nitrite Negative (NEG) Urine Bilirubin Negative (NEG) Urine Urobilinogen Dipstick 0.2 mg/dL (0.2 mg/dL) Urine Leukocyte Esterase Small (NEG) Urine RBC 3-5 /HPF (0-2) Urine WBC 5-10 /HPF (0-4) Urine Squamous Epithelial Cells Few /LPF Urine Bacteria Few /HPF (0-FEW) Urine Hyaline Casts Occasional /HPF Urine Mucus Slight /LPF Urine Trichomonas Present Urine Opiates Screen Neg (NEG) Urine Methadone Screen Neg (NEG) Urine Barbiturates Neg (NEG) Urine Phencyclidine Screen Neg (NEG) Urine Amphetamine/Methamphetamine Neg (NEG) Urine Benzodiazepines Screen Neg (NEG) Urine Cocaine Screen Neg (NEG) Urine Cannabinoids Screen Pos (NEG) Urine Ethyl Alcohol Neg (NEG) Bedside Urine HCG, Qualitative Hcg negative (Negative) SARS-CoV-2 Antigen (Rapid) Negative (NEGATIVE) Assessment/Plan Assessment/Plan Assessment: 41y with abd pain Recommendations: 1.) Abd/pelvic pain still with poor pain control. Will add PO pain meds. 2.) Pelvic mass Likely right 9 cm complex cystic and solid mass lesion extending from the left adnexa to the right adnexa. Discussed ddx with the pt. Explained that based on findings on u/s very concerning for malignancy. Discussed the size and appearance is most concerning. Explained that factors in her favor are her age and menopausal status. Would consider obtaining a CA 125. Would recommend transfer to a facility with [facility] St[facility]/Onc. The pt would prefer [facility] since her mother is currently hospitalized. 3.) Tob use 4.) Will continue to follow RENEE YU MD Apr 20, 2021 20:47
[2021-04-20] MEDS: oxyCODONE/APAP 5/325 1 TAB TABLET PO PRN (21:30)
[2021-04-21] MEDS: PIPERACILLIN/TAZOBACTAM 3.375 GM in IV NORMAL SALINE 50ML 50 ML IV SCH ×3 (01:00→13:15)
[2021-04-21] MEDS: MORPHINE SULFATE 2 MG/ML INJ. IV PRN (01:19)
[2021-04-21 01:28] VITALS: BP 142/81
[2021-04-21 03:59] VITALS: BP 138/80
[2021-04-21] MEDS: oxyCODONE/APAP 5/325 1 TAB TABLET PO PRN ×2 (05:31→11:58)
[2021-04-21 08:15] VITALS: BP 132/77
--- NOTE | 2021-04-21 09:47 | NUR ---
SS discussed with Dr. Magaña this morning. Transfer to requested for Gynecology/Oncology due to mass. SS discussed with RN on floor. Both SS and RN contacted transfer team, . Request made for transfer. Records faxed as requested to fax# [phone]. Radiology, [id number], contacted and request made for images to be clouded to . SS spoke with Garret in the transfer team at . Garret reported that pt has been financially cleared and he is awaiting on clinical acceptance decision at this time time. RN notified. Packet, ambulance form, and transfer form on the chart. Addendum: 04/21/21 at 1331 by SALMA PEDERSEN contacted SS. Pt accepted. Accepting physician Dr. Rodriguez. Bed# [id number]. Report# [phone]. Packet, ambulance form, and transfer form on the chart. Pt will discharge today and go to via [facility] ambulance at or around 1400. Floor notified.
--- NOTE | 2021-04-21 10:10 | NUR ---
Dr. Magaña at bedside discussing POC, assessments and probable transfer to [facility]
--- NOTE | 2021-04-21 10:50 | PDOC ---
RN CVICU PROGRESS NOTE Date of Service: DATE: 04/21/21 TIME: 10:49 Subjective: Discussed plan with pt. She still has time where the severe pain returns. Objective: Vital Signs: Vital Signs Date Time Temp Pulse Resp B/P (MAP) Pulse Ox O2 Delivery O2 Flow Rate FiO2 04/20/21 10:35 98.9 90 28 134/69 (90) 100 Room Air 98.9 Vital Signs Date Time Temp Pulse Resp B/P (MAP) Pulse Ox O2 Delivery O2 Flow Rate FiO2 04/21/21 10:23 20 Room Air 04/21/21 08:15 98.5 92 132/77 (95) 100 98.5 Labs: Laboratory Tests Test 04/20/21 11:07 04/20/21 11:44 04/20/21 11:49 04/20/21 15:40 White Blood Count 7.5 x10^3/uL (4.0-11.0) Red Blood Count 4.68 x10^6/uL (3.50-5.40) Hemoglobin 11.2 g/dL (12.0-15.5) L Hematocrit 35.1 % (36.0-47.0) L Mean Corpuscular Volume 75 fL (79-100) L Mean Corpuscular Hemoglobin 24 pg (25-35) L Mean Corpuscular Hemoglobin Concent 32 g/dL (31-37) Red Cell Distribution Width 16.3 % (11.5-14.5) H Platelet Count 264 x10^3/uL (140-400) Neutrophils (%) (Auto) 68 % (31-73) Lymphocytes (%) (Auto) 28 % (24-48) Monocytes (%) (Auto) 3 % (0-9) Eosinophils (%) (Auto) 0 % (0-3) Basophils (%) (Auto) 1 % (0-3) Neutrophils # (Auto) 5.1 x10^3/uL (1.8-7.7) Lymphocytes # (Auto) 2.1 x10^3/uL (1.0-4.8) Monocytes # (Auto) 0.2 x10^3/uL (0.0-1.1) Eosinophils # (Auto) 0.0 x10^3/uL (0.0-0.7) Basophils # (Auto) 0.0 x10^3/uL (0.0-0.2) Erythrocyte Sedimentation Rate 24 (0-25) Sodium Level 136 mmol/L (136-145) Potassium Level 3.5 mmol/L (3.5-5.1) Chloride Level 99 mmol/L (98-107) Carbon Dioxide Level 19 mmol/L (21-32) L Anion Gap 18 (6-14) H Blood Urea Nitrogen 7 mg/dL (7-20) Creatinine 0.7 mg/dL (0.6-1.0) Estimated GFR (Cockcroft-Gault) 91.8 BUN/Creatinine Ratio 10 (6-20) Glucose Level 75 mg/dL (70-99) Calcium Level 8.6 mg/dL (8.5-10.1) Total Bilirubin 0.8 mg/dL (0.2-1.0) Aspartate Amino Transferase (AST) 22 U/L (15-37) Alanine Aminotransferase (ALT) 29 U/L (14-59) Alkaline Phosphatase 78 U/L (46-116) C-Reactive Protein, Quantitative 171.1 mg/L (0-3.3) H Total Protein 6.4 g/dL (6.4-8.2) Albumin 3.1 g/dL (3.4-5.0) L Albumin/Globulin Ratio 0.9 (1.0-1.7) L Lipase 52 U/L (73-393) L Urine Collection Type Unknown Urine Color Yellow Urine Clarity Clear Urine pH 6.0 (<5.0-8.0) Urine Specific [place] 1.015 (1.000-1.030) Urine Protein 30 mg/dL (NEG-TRACE) Urine Glucose (UA) Negative mg/dL (NEG) Urine Ketones (Stick) >=80 mg/dL (NEG) Urine Blood Small (NEG) Urine Nitrite Negative (NEG) Urine Bilirubin Negative (NEG) Urine Urobilinogen Dipstick 0.2 mg/dL (0.2 mg/dL) Urine Leukocyte Esterase Small (NEG) Urine RBC 3-5 /HPF (0-2) Urine WBC 5-10 /HPF (0-4) Urine Squamous Epithelial Cells Few /LPF Urine Bacteria Few /HPF (0-FEW) Urine Hyaline Casts Occasional /HPF Urine Mucus Slight /LPF Urine Trichomonas Present Urine Opiates Screen Neg (NEG) Urine Methadone Screen Neg (NEG) Urine Barbiturates Neg (NEG) Urine Phencyclidine Screen Neg (NEG) Urine Amphetamine/Methamphetamine Neg (NEG) Urine Benzodiazepines Screen Neg (NEG) Urine Cocaine Screen Neg (NEG) Urine Cannabinoids Screen Pos (NEG) Urine Ethyl Alcohol Neg (NEG) POC Urine HCG, Qualitative Hcg negative (Negative) SARS-CoV-2 RNA (WILL) Negative (Negative) SARS-CoV-2 Antigen (Rapid) Negative (NEGATIVE) Laboratory Tests 04/20/21 11:07 Laboratory Tests 04/20/21 11:07 Laboratory Tests 04/20/21 11:07 Physical Exam: GENERAL: No apparent distress. Alert and oriented. HEENT: Head normocephalic, atraumatic. NECK: Supple LUNGS: Clear to auscultation. HEART: RRR, S1, S2 present, pulses intact ABDOMEN: Soft, positive bowel sounds. EXTREMITIES: No cyanosis or edema. NEUROLOGIC: Normal speech, normal tone PSYCHIATRIC: Normal affect, normal mood. SKIN: No ulceration. Assessment & Plan: A/P 41y with abd pain 1.) Abd/pelvic pain Pain better controlled, but still episodes of severe pain 2.) Pelvic mass Likely right 9 cm complex cystic and solid mass lesion extending from the left adnexa to the right adnexa. CA 125 pending. Attempting to transfer to [facility]/Onc. 3.) Tob use 4.) Will continue to follow RENEE YU MD Apr 21, 2021 10:50
--- NOTE | 2021-04-21 10:55 | NUR ---
Dr. Busch discussed pt. POC, transfer for further evaluation to [facility] later this day with pt.
--- NOTE | 2021-04-21 11:38 | PDOC ---
[facility] [facility] PROGRESS NOTE Date of Service DOS: DATE: 04/21/21 TIME: 11:33 Chief Complaint Chief Complaint Abdominal pain History of Present Illness History of Present Illness The patient is a pleasant, healthy 41-year-old female who presents to the ER with abdominal pain. We did some imaging and it appears she has a fallopian tube abscess. 04/21 Patient evaluated at bedside. She was resting in bed and was endorsing ongoing abdominal pain. She is on board with plan to transfer. Awaiting decision from [facility]. Vitals/I&O Vitals/I&O: Vital Signs Date Time Temp Pulse Resp B/P (MAP) Pulse Ox O2 Delivery O2 Flow Rate FiO2 04/21/21 10:56 18 100 Room Air 04/21/21 08:15 98.5 92 132/77 (95) 98.5 I & O 04/20/21 04/20/21 04/21/21 15:00 23:00 07:00 Intake Total 2000 ml 150 ml Balance 2000 ml 150 ml Physical Exam General: Alert, Oriented X3, Cooperative, moderate distress Heart: Regular rate, Normal S1, Normal S2, No murmurs Lungs: Clear Abdomen: Normal bowel sounds, Soft, Other (Tender in both lower quadrants) Extremities: No edema, Normal pulses Skin: No rashes, No significant lesion Labs Labs: Laboratory Tests Test 04/20/21 11:44 04/20/21 11:49 04/20/21 15:40 Urine Collection Type Unknown Urine Color Yellow Urine Clarity Clear Urine pH 6.0 (<5.0-8.0) Urine Specific [place] 1.015 (1.000-1.030) Urine Protein 30 mg/dL (NEG-TRACE) Urine Glucose (UA) Negative mg/dL (NEG) Urine Ketones (Stick) >=80 mg/dL (NEG) Urine Blood Small (NEG) Urine Nitrite Negative (NEG) Urine Bilirubin Negative (NEG) Urine Urobilinogen Dipstick 0.2 mg/dL (0.2 mg/dL) Urine Leukocyte Esterase Small (NEG) Urine RBC 3-5 /HPF (0-2) Urine WBC 5-10 /HPF (0-4) Urine Squamous Epithelial Cells Few /LPF Urine Bacteria Few /HPF (0-FEW) Urine Hyaline Casts Occasional /HPF Urine Mucus Slight /LPF Urine Trichomonas Present Urine Opiates Screen Neg (NEG) Urine Methadone Screen Neg (NEG) Urine Barbiturates Neg (NEG) Urine Phencyclidine Screen Neg (NEG) Urine Amphetamine/Methamphetamine Neg (NEG) Urine Benzodiazepines Screen Neg (NEG) Urine Cocaine Screen Neg (NEG) Urine Cannabinoids Screen Pos (NEG) Urine Ethyl Alcohol Neg (NEG) Bedside Urine HCG, Qualitative Hcg negative (Negative) SARS-CoV-2 RNA (WILL) Negative (Negative) SARS-CoV-2 Antigen (Rapid) Negative (NEGATIVE) Assessment and Plan Assessmemt and Plan Problems Medical Problems: (1) Intractable abdominal pain Status: Acute (2) Trichomoniasis of bladder Status: Acute 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 The patient will be admitted. I have started IV Zosyn. We also gave her IV doxycycline. Consult COMPUTER FIELD TECHNICIAN --> recommend transfer for [facility]-Onc. Home meds. Deep venous thrombosis prophylaxis. Full code Comment Review of Relevant I have reviewed the following items bijan (where applicable) has been applied. Medications: Current Medications Medications (Trade) Dose Ordered Sig/Yunior Route PRN Reason Start Time Stop Time Status Last Admin Dose Admin Iohexol (Omnipaque 300 Mg/ml) 75 ml 1X ONCE IV 04/20/21 12:15 04/20/21 12:16 DC 04/20/21 12:23 Metronidazole (Flagyl) 2,000 mg 1X ONCE PO 04/20/21 12:30 04/20/21 12:31 DC 04/20/21 12:45 Sodium Chloride 1,000 ml @ 1,000 mls/hr 1X ONCE IV 04/20/21 12:30 04/20/21 13:29 DC 04/20/21 12:50 Ceftriaxone Sodium (Rocephin) 1 gm 1X ONCE IVP 04/20/21 12:30 04/20/21 12:31 DC 04/20/21 12:45 Doxycycline Hyclate 100 mg/ Dextrose 100 ml @ 50 mls/hr 1X ONCE IV 04/20/21 14:15 04/20/21 16:14 DC 04/20/21 14:54 Nicotine (Nicoderm Cq 21mg) 1 patch 1X ONCE TD 04/20/21 14:30 04/20/21 14:31 DC 04/20/21 14:48 Fentanyl Citrate (Fentanyl 2ml Vial) 50 mcg 1X ONCE IVP 04/20/21 14:30 04/20/21 14:31 DC 04/20/21 14:49 Ondansetron HCl (Zofran) 4 mg PRN Q8HRS PRN IVP NAUSEA/VOMITING 04/20/21 14:45 04/21/21 14:44 04/21/21 05:30 Fentanyl Citrate (Fentanyl 2ml Vial) 50 mcg PRN Q1HR PRN IVP PAIN 04/20/21 14:45 04/21/21 09:22 DC 04/20/21 17:35 Sodium Chloride 1,000 ml @ 125 mls/hr Q8H IV 04/20/21 14:45 04/21/21 14:44 04/20/21 18:19 Piperacillin Sod/ Tazobactam Sod 3.375 gm/Sodium Chloride 50 ml @ 100 mls/hr Q6HRS IV 04/20/21 18:00 04/21/21 06:28 Morphine Sulfate (Morphine Sulfate) 2 mg PRN Q2HR PRN IV MODERATE PAIN 04/20/21 20:00 04/21/21 01:19 Morphine Sulfate (Morphine Sulfate) 4 mg PRN Q2HR PRN IV SEVERE PAIN 04/20/21 20:00 04/21/21 10:23 Oxycodone/ Acetaminophen (Percocet 5/325) 1 tab PRN Q6HRS PRN PO MODERATE TO SEVERE PAIN 04/20/21 20:30 04/21/21 05:31 Justifications for Admission Other Justification ADRIANO GIVENS MD Apr 21, 2021 11:38
[2021-04-21] MEDS: IV NORMAL SALINE 1000ML BAG 1,000 ML IV SCH (11:59)
[2021-04-21 12:05] VITALS: BP 125/76
[2021-04-21 13:20] VITALS: BP 131/74
--- NOTE | 2021-04-21 13:50 | NUR ---
Pt transferred/transported per [facility]/ Fire dept per cart in stable condition for further evaluation of prearranged transfer to [facility] at this time. IV fluids dc'd and saline locked. Pt alert, awake and active with VS/WNL. Pt ambulatory to [facility]. Accepting [facility] physician is Dr. Rodriguez and PC to receiving Nurse at [facility] was completed with Shauna Stephens RN with patient report.
[2021-04-21] MEDS ORDERED: LACTOBACILLUS RHAMNOSUS GG 1 CAPSULE. PO SCH (21:00)
== END 2021-04-21 14:35 | disposition short-term general hospital (02) | DRG 869 ==
LOC: ER 09:55 → 3 SO LND 18:36
PROVIDERS: ADMIT Internal Medicine; ATTEND Internal Medicine
DX: A59.9 Trichomoniasis, unspecified (principal); D25.9 Leiomyoma of uterus, unspecified; F17.210 Nicotine dependence, cigarettes, uncomplicated; K76.89 Other specified diseases of liver; M41.9 Scoliosis, unspecified; Z20.822 Contact with and (suspected) exposure to COVID-19; R19.00 Intra-abdominal and pelvic swelling, mass and lump, unspecified site; Z83.3 Family history of diabetes mellitus
CPT/HCPCS: 36415; 71045; 74177; 76856; 80053; 80307; 81001; 81025; 83690; 85025; 85651; 86140; 86304; 87077; 87086; 87186; 87426; 87491; 87591; 93005; 96361; 96365; 96366; 96375; J0696; J2270; J2405; J2543; J3010; J3490; J7030; J7060; Q9967; U0003; U0005; 99285-25; G0378